=== PATIENT | male | born 1945 | race Caucasian/White ===

== ENCOUNTER 2021-11-15 13:51 | Inpatient (IN) | payer MEDICARE, BC ==
[~2021-11-15] VITALS: Ht 167.6 cm; Wt 76.7 kg
[2021-11-15 16:10] LABS: HEMATOCRIT 37.3 % (36.7-47.1); MEAN CORPUSCULAR HEMOGLOBIN 33.6 uug (23.8-33.4); MEAN CORPUSCULAR VOLUME 99.8 fL (73.0-96.2); PLATELET COUNT (AUTO) 196 K/uL (152-348)
[2021-11-15 16:17] LABS: CARBON DIOXIDE 32 mmol/L (21-32); CHLORIDE 106 mmol/L (98-107); CREATININE 1.1 mg/dL (0.6-1.3); GLUCOSE 97 mg/dL (74-106); POTASSIUM 4.2 mmol/L (3.5-5.1); UREA NITROGEN, BLOOD 28 mg/dL (7-18)
[2021-11-15 16:23] LABS: ALANINE AMINOTRANSFERASE 12 U/L (16-63); ALKALINE PHOSPHATASE 85 U/L (50-136); ASPARTATE AMINOTRANSFERASE 10 U/L (15-37); BILIRUBIN,TOTAL 0.5 mg/dL (0.2-1.0); TOTAL PROTEIN, SERUM 6.7 g/dL (6.4-8.2)
[2021-11-15 16:28] LABS: ETHANOL < 3 MG/DL (0-0)
[2021-11-15 16:36] LABS: ACETAMINOPHEN < 2.0 ug/mL (10-30)
[2021-11-15] MEDS ORDERED: QUET25TA PO (16:39)
[2021-11-15] MEDS ORDERED: ACET-2154 PO (16:39)
[2021-11-15] MEDS ORDERED: DONE10TA44 PO (16:39)
[2021-11-15] MEDS ORDERED: CARB1TAB31 PO (16:39)
[2021-11-15] MEDS ORDERED: MELA5TAB PO (16:39)
--- NOTE | 2021-11-15 16:40 | NUR ---
A [facility] PASSENGER RELATIONS REPRESENTATIVE evaluating the Pt for possible Psych admit/5150 hold.
--- NOTE | 2021-11-15 17:10 | NUR ---
COVID swab sent to lab.
--- NOTE | 2021-11-15 17:15 | NUR ---
Urine collected and sent to Lab.
[2021-11-15 17:23] LABS: *BILIRUBIN,URIN NEGATIVE (NEGATIVE); *BLOOD, URINE NEGATIVE (NEGATIVE); *CLARITY,URINE CLEAR (CLEAR); *COLOR,URINE YELLOW (YELLOW); *KETONES,URINE 1+ (NEGATIVE); *UROBILINOGEN,URINE 0.2 E.U./dl (NORMAL); LEUKOCYTE ESTERASE ,URINE NEGATIVE (NEGATIVE); NITRITE, URINE NEGATIVE (NEGATIVE); UGLUCOSE NEGATIVE (NEGATIVE)
[2021-11-15 17:31] LABS: *AMPHETAMINE, URINE NEGATIVE (NEGATIVE); *CANNABINOID, URINE NEGATIVE (NEGATIVE); *COCCAINE, URINE NEGATIVE (NEGATIVE); *OPIATE, URINE NEGATIVE (NEGATIVE); *PHENCYCLIDINE SCREEN,URINE NEGATIVE (NEGATIVE)
--- NOTE | 2021-11-15 18:15 | NUR ---
Pt is medically cleared by Dr oLzano.
--- NOTE | 2021-11-15 18:30 | NUR ---
Pt transfered to U via wheelchair.
[2021-11-15] MEDS ORDERED: MAG HYDROX/AL HYDROX/SIMETH 30 ML LIQUID UDC PO PRN (19:00)
[2021-11-15] MEDS ORDERED: LORAZEPAM 0.5 MG TABLET PO PRN (19:00)
[2021-11-15] MEDS: LORAZEPAM 1 MG TABLET PO PRN (19:46)
[2021-11-15 20:00] VITALS: BP 142/71
[2021-11-15] MEDS: ZOLPIDEM 5 MG TABLET PO PRN (20:43)
--- NOTE | 2021-11-15 22:23 | NUR ---
GPS ADMISSION NOTES: Received patient in the [facility], admitted to MHU under 5150 d/t GD, as per hold patient he has been yelling, hallucinating, easily agitated and non-compliant with care. Upon face to face evaluation, patient is confused, A&0x1. He is unable to answer questions or sign admissions papers d/t his confusion. Patient attempt to get out of chair but unsteady, assist him back to chair for safety, w/c he became combative. He is somewhat re-directable. Educated patient on the need for compliance in the unit. He is agreeable at this time. Prn ativan given and ambien given. Snacks and fluid provided w/ good appetite. Shower also provided. Pool Player spoke to to inform patients admittance to MHU, also provided me the information in regards to patient Covid 19- vaccine status. Advisement and patient rights handbook provided to patient at bedside. Fall precaution observed. Safety strategies kept in place.
[2021-11-16 06:37] LABS: BILIRUBIN,TOTAL 0.6 mg/dL (0.2-1.0); CREATININE 1.1 mg/dL (0.6-1.3); POTASSIUM 3.7 mmol/L (3.5-5.1); TOTAL PROTEIN, SERUM 6.4 g/dL (6.4-8.2)
[2021-11-16 07:30] VITALS: BP 146/85
[2021-11-16] MEDS: LORAZEPAM 1 MG TABLET PO PRN ×2 (08:50→17:59)
[2021-11-16] MEDS: QUETIAPINE FUMARATE 25 MG TABLET PO SCH ×2 (09:26→20:15)
--- NOTE | 2021-11-16 11:42 | NUR ---
KEL Initial Discharge Note: [facility] [place] [address] [facility] [address]. KEL will contact the facility regarding pt's return upon discharge. KEL will contact pt's , Valeria ([phone]) to discuss pt's discharge plan. KEL will continue to work with pt, family and MD to ensure a safe and proper discharge plan.
[2021-11-16] MEDS: LITHIUM CARBONATE 150 MG CAPSULE PO SCH ×2 (12:42→17:20)
[2021-11-16] MEDS ORDERED: POLY17PO4 PO (13:24)
[2021-11-16] MEDS ORDERED: CARB1TAB21 PO (13:24)
[2021-11-16] MEDS ORDERED: AMAN100T PO (13:24)
[2021-11-16] MEDS ORDERED: CARB1TAB39 PO (13:24)
--- NOTE | 2021-11-16 14:53 | NUR ---
Patient is confused, disoriented, forgetful, disorganized, agitated, restless, anxious, compliant with medications. Patient is given Ativan PO, semi effective. Patient has poor safety awareness, tries to walk without assistance. Patient requires more than minimal assistance with ADL. Reality orientation provided. Fall and safety precautions implemented.
[2021-11-16 15:27] VITALS: BP 133/80
--- NOTE | 2021-11-16 18:01 | NUR ---
Ativan 1 mg is given for agitation, anxiety, will be monitored for effectiveness.
[2021-11-16 19:47] VITALS: BP 133/82
[2021-11-17 07:30] VITALS: BP 142/81
[2021-11-17] MEDS: QUETIAPINE FUMARATE 25 MG TABLET PO SCH ×2 (09:11→20:37)
[2021-11-17] MEDS: LITHIUM CARBONATE 150 MG CAPSULE PO SCH ×3 (09:11→17:11)
--- NOTE | 2021-11-17 14:56 | NUR ---
Patient is quiet, withdrawn, confused, disoriented, restless, cooperative with nursing care and compliant with medications, follows directions. Patient requires more than minimal assistance with ADL. Reassurance given. Fall and safety precautions implemented.
[2021-11-17] MEDS: LORAZEPAM 1 MG TABLET PO PRN ×2 (15:05→20:37)
--- NOTE | 2021-11-17 15:07 | NUR ---
Patient is given Ativan 1 mg at 15:05 for restlessness, agitation, anxiety, will be monitored for effectiveness.
[2021-11-17 16:00] VITALS: BP 111/72
[2021-11-17] MEDS: CARBIDOPA/LEVODOPA 25-100MG TABLET PO SCH ×2 (17:17→20:45)
[2021-11-17 20:00] VITALS: BP 95/54
[2021-11-17] MEDS: CARBIDOPA/LEVODOPA CR 25-100MG TABLET.SA PO SCH (20:37)
[2021-11-17] MEDS: ZOLPIDEM 5 MG TABLET PO PRN (20:38)
--- NOTE | 2021-11-18 05:17 | NUR ---
GPS NOTES: Patient remains confused, A&ox1. He requires assistance to perform ADL's. Needs constant reality checks and redirections. He is med compliant. He does not make any meaningful conversation with the typewriter tester. He slept well during shift. frequent monitoring observed for safety.
[2021-11-18] MEDS: CARBIDOPA/LEVODOPA 25-100MG TABLET PO SCH ×6 (05:43→20:36)
[2021-11-18 07:30] VITALS: BP 127/71
[2021-11-18] MEDS: LITHIUM CARBONATE 150 MG CAPSULE PO SCH ×3 (08:35→17:42)
[2021-11-18] MEDS: AMANTADINE HCL 100 MG CAPSULE PO SCH (08:35)
[2021-11-18] MEDS: QUETIAPINE FUMARATE 25 MG TABLET PO SCH ×2 (08:36→20:36)
[2021-11-18] MEDS: MIRALAX 17 GM POWD.PACK PO SCH (08:36)
[2021-11-18] MEDS: LORAZEPAM 1 MG TABLET PO PRN ×2 (10:29→20:36)
--- NOTE | 2021-11-18 10:31 | NUR ---
Ativan 1 mg is given at 10:30 am for restlessness, agitation, anxiety, will be monitored for effectiveness.
[2021-11-18] MEDS ORDERED: LORAZEPAM 2 MG/1 ML VIAL IM ONE (11:45)
[2021-11-18] MEDS ORDERED: OLANZAPINE 10 MG VIAL IM ONE (11:45)
--- NOTE | 2021-11-18 12:27 | NUR ---
Patient became aggressive, tried to punch staff in the face, agitated, anxious, high potential for violence, striking out at others, punching the seals. Psychiatrist was called and ordered Zyprexa 5 mg IM, Ativan 1 mg IM. Security was called and 5 people were necessary to administered the medication, but no injuries for both parts. Reassurance given. Patient refuses vital signs. Fall and safety precautions implemented.
--- NOTE | 2021-11-18 15:40 | NUR ---
Firearms Report: Assistant Plant Manager completed and submitted a [employer] firearms report for 5150 grave disability certifications. A copy of report has been placed in patient chart.
[2021-11-18 15:47] VITALS: BP 141/89
--- NOTE | 2021-11-18 16:48 | NUR ---
Patient is restless, agitated, disoriented, disorganized. A/O X 1 to person. Requires more than minimal assistance with ADL. Reassurance given. Fall and safety precautions implemented.
[2021-11-18 20:00] VITALS: BP 138/76
[2021-11-18] MEDS: ZOLPIDEM 5 MG TABLET PO PRN (20:36)
[2021-11-18] MEDS: CARBIDOPA/LEVODOPA CR 25-100MG TABLET.SA PO SCH (20:52)
--- NOTE | 2021-11-18 21:50 | NUR ---
GPS: Received Patient lying in bed. confused, disoriented, forgetful, agitated, restless, anxious, compliant with medications. Patient has poor safety awareness, tries to walk without assistance. assisted with adl's. good yashira care provided for skin safety. Patient requires more than minimal assistance with ADL. Reality orientation provided. Fall and safety precautions implemented. bed alarm is on.continue monitoring for safety
[2021-11-19] MEDS: CARBIDOPA/LEVODOPA 25-100MG TABLET PO SCH ×6 (05:39→20:27)
--- NOTE | 2021-11-19 06:09 | NUR ---
GPS : Patient remain confused and forgetful through the shift. alert and oriented x1 to name only. incontinent provided adl's. ADL's. Needs constant reality checks and redirections. compliant with meds. compliant. slept 5.30 hrs through the night. frequent monitoring observed for safety. bed alarm on.
[2021-11-19 07:30] VITALS: BP 117/59
[2021-11-19] MEDS: LITHIUM CARBONATE 150 MG CAPSULE PO SCH ×3 (08:30→16:40)
[2021-11-19] MEDS: QUETIAPINE FUMARATE 25 MG TABLET PO SCH ×4 (08:30→20:28)
[2021-11-19] MEDS: MIRALAX 17 GM POWD.PACK PO SCH (08:31)
[2021-11-19] MEDS: AMANTADINE HCL 100 MG CAPSULE PO SCH (08:31)
[2021-11-19] MEDS: LORAZEPAM 1 MG TABLET PO PRN (09:01)
[2021-11-19 09:59] LABS: HEMATOCRIT 39.9 % (36.7-47.1); MEAN CORPUSCULAR HEMOGLOBIN 33.7 uug (23.8-33.4); MEAN CORPUSCULAR VOLUME 97.5 fL (73.0-96.2); PLATELET COUNT (AUTO) 208 K/uL (152-348)
[2021-11-19 10:36] LABS: CREATININE 1.1 mg/dL (0.6-1.3); PHOSPHOROUS 4.4 mg/dL (2.5-4.9); POTASSIUM 3.9 mmol/L (3.5-5.1)
--- NOTE | 2021-11-19 14:06 | NUR ---
Received patient alert and oriented x1 to himself only, get patient up to juan-chair . patient has episode of agitation and aggressive, Ativan 1 mg given as ordered.assisted with all ADLS,compliant with all po medication ,will continue close monitoring.
[2021-11-19 15:20] VITALS: BP 104/71
[2021-11-19 20:06] VITALS: BP 107/63
[2021-11-19] MEDS: CARBIDOPA/LEVODOPA CR 25-100MG TABLET.SA PO SCH (20:50)
--- NOTE | 2021-11-19 21:00 | NUR ---
GPS: Received Patient lying in bed. patient is confused, disoriented, forgetful, agitated, restless, anxious, compliant with medications. Patient has poor safety awareness, tries to get out of bed without assistance. patient assisted with adl's. Patient requires more than minimal assistance with ADL. Reality orientation provided. Fall and safety precautions implemented. bed alarm is on.continue monitoring for safety
[2021-11-20] MEDS: CARBIDOPA/LEVODOPA 25-100MG TABLET PO SCH ×6 (05:18→20:23)
--- NOTE | 2021-11-20 05:42 | NUR ---
GPS : Patient remain forgetful through the shift. alert and oriented x1 to name only. incontinent provided adl's. patient had large soft BM. Needs constant reality checks and redirections. compliant with meds. compliant. frequent monitoring observed for safety. bed alarm on.
--- NOTE | 2021-11-20 06:21 | NUR ---
GPS: slept 7.30 hrs through the night.
[2021-11-20 07:30] VITALS: BP 91/64
[2021-11-20] MEDS: LITHIUM CARBONATE 150 MG CAPSULE PO SCH ×3 (08:16→17:06)
[2021-11-20] MEDS: QUETIAPINE FUMARATE 25 MG TABLET PO SCH ×4 (08:16→20:24)
[2021-11-20] MEDS: MIRALAX 17 GM POWD.PACK PO SCH (08:17)
[2021-11-20] MEDS: AMANTADINE HCL 100 MG CAPSULE PO SCH (08:17)
[2021-11-20] MEDS: LORAZEPAM 1 MG TABLET PO PRN (09:28)
--- NOTE | 2021-11-20 09:30 | NUR ---
Patient is given Ativan 1 mg at 09:28 for anxiety, agitation, restlessness, very confused and disoriented, poor safety awareness, will be monitored for effectiveness.
[2021-11-20 16:00] VITALS: BP 106/67
[2021-11-20 20:00] VITALS: BP 122/68
[2021-11-20] MEDS: CARBIDOPA/LEVODOPA CR 25-100MG TABLET.SA PO SCH (20:25)
--- NOTE | 2021-11-20 22:30 | NUR ---
patient is resting in bed comfortably. no agitation noted at this time. prn for anxiety effective. continue plan of care.
--- NOTE | 2021-11-21 02:15 | NUR ---
patient is very agitated. ativan 1 mg po given for anxiety.
[2021-11-21] MEDS: LORAZEPAM 1 MG TABLET PO PRN ×3 (02:16→20:55)
--- NOTE | 2021-11-21 03:15 | NUR ---
patient is calm now. prn for anxiety effective.
[2021-11-21] MEDS: CARBIDOPA/LEVODOPA 25-100MG TABLET PO SCH ×6 (05:15→20:54)
--- NOTE | 2021-11-21 05:43 | NUR ---
GPS : Patient remain forgetful through the shift, alert and oriented x1 to name only. incontinent provided adl's. Needs constant reality checks and redirections. compliant with meds. frequent monitoring observed for safety. bed alarm on.continue plan of care.
[2021-11-21 06:44] VITALS: BP 116/70
[2021-11-21] MEDS: ACETAMINOPHEN 325 MG TABLET PO PRN ×2 (06:53→18:29)
--- NOTE | 2021-11-21 06:56 | NUR ---
temp 100.1 tylenol 650mg po given.encouraged po fluid. continue plan of care.
[2021-11-21 07:30] VITALS: BP 96/59
[2021-11-21 08:04] LABS: HEMATOCRIT 37.2 % (36.7-47.1); MEAN CORPUSCULAR HEMOGLOBIN 33.9 uug (23.8-33.4); MEAN CORPUSCULAR VOLUME 97.7 fL (73.0-96.2); PLATELET COUNT (AUTO) 207 K/uL (152-348)
[2021-11-21 08:18] LABS: BILIRUBIN,TOTAL 0.8 mg/dL (0.2-1.0); CREATININE 1.2 mg/dL (0.6-1.3); POTASSIUM 4.3 mmol/L (3.5-5.1); TOTAL PROTEIN, SERUM 6.8 g/dL (6.4-8.2)
[2021-11-21] MEDS: LITHIUM CARBONATE 150 MG CAPSULE PO SCH ×3 (08:23→16:53)
[2021-11-21] MEDS: QUETIAPINE FUMARATE 25 MG TABLET PO SCH ×4 (08:23→20:55)
[2021-11-21] MEDS: MIRALAX 17 GM POWD.PACK PO SCH (08:24)
[2021-11-21] MEDS: AMANTADINE HCL 100 MG CAPSULE PO SCH (08:32)
--- NOTE | 2021-11-21 15:26 | NUR ---
Received patient alert and oriented x1 to himself only, get patient up to juan-chair . patient has episode of agitation and aggressive, Ativan 1 mg given as ordered.assisted with all ADLS,compliant with all po medication ,patient is confused with poor insight and poor judgement will continue close monitoring.
[2021-11-21 16:08] VITALS: BP 122/73
--- NOTE | 2021-11-21 18:24 | NUR ---
noted patient had sql server bi developer abd.pain yelling and screaming ,Alison Sanchez COIL BUILDER notified with new order made.
[2021-11-21 19:58] VITALS: BP 102/61
[2021-11-21] MEDS: CARBIDOPA/LEVODOPA CR 25-100MG TABLET.SA PO SCH (20:54)
--- NOTE | 2021-11-21 22:35 | NUR ---
Patient is not able to comprehend when spoken to, but at times has moments of clarity. Was unable to leave to receive CT-Scan d/t shakiness and tremor r/t Parkinson's. Patient took PO medications without complications nor aspirations.
[2021-11-22] MEDS: LORAZEPAM 1 MG TABLET PO PRN (06:42)
[2021-11-22] MEDS: CARBIDOPA/LEVODOPA 25-100MG TABLET PO SCH ×6 (06:42→20:30)
[2021-11-22 08:30] VITALS: BP 113/65
[2021-11-22] MEDS: QUETIAPINE FUMARATE 25 MG TABLET PO SCH ×2 (08:37→20:31)
[2021-11-22] MEDS: LITHIUM CARBONATE 150 MG CAPSULE PO SCH (08:37)
[2021-11-22] MEDS: MIRALAX 17 GM POWD.PACK PO SCH (08:37)
[2021-11-22] MEDS: AMANTADINE HCL 100 MG CAPSULE PO SCH (08:38)
--- NOTE | 2021-11-22 09:30 | NUR ---
Patient had 5250 probable cause hearing today and it was upheld for grave disability
[2021-11-22] MEDS ORDERED: LITHIUM CARBONATE 150 MG CAPSULE PO SCH (10:00)
[2021-11-22] MEDS ORDERED: LITHIUM CARBONATE 150 MG CAPSULE PO ONE (10:15)
[2021-11-22 15:33] VITALS: BP 134/74
--- NOTE | 2021-11-22 16:19 | NUR ---
received patient up to Tracy-chair assisted with all ADLS, patient with poor impulse control , poor insight and judgement ,compliant with all po medication ,wll continue close monitoring.
--- NOTE | 2021-11-22 16:20 | NUR ---
KEL Family Contact: KEL spoke with pt's Valeria ([phone]) who stated that she is agreeable for pt to return to [facility] facility upon discharge. Mackenzie from [facility] has confirmed pt's return upon discharge on 11/25/21.
[2021-11-22] MEDS: LITHIUM CARBONATE 300 MG CAPSULE PO SCH (17:34)
[2021-11-22 20:02] VITALS: BP 122/72
[2021-11-22] MEDS: ZOLPIDEM 5 MG TABLET PO PRN (20:31)
[2021-11-22] MEDS: CARBIDOPA/LEVODOPA CR 25-100MG TABLET.SA PO SCH (20:31)
[2021-11-23] MEDS: CARBIDOPA/LEVODOPA 25-100MG TABLET PO SCH ×6 (05:58→20:11)
[2021-11-23 07:30] VITALS: BP 94/54
[2021-11-23] MEDS: QUETIAPINE FUMARATE 25 MG TABLET PO SCH ×2 (09:29→20:11)
[2021-11-23] MEDS: LITHIUM CARBONATE 300 MG CAPSULE PO SCH ×2 (09:29→16:18)
[2021-11-23] MEDS: AMANTADINE HCL 100 MG CAPSULE PO SCH (09:30)
[2021-11-23] MEDS: MIRALAX 17 GM POWD.PACK PO SCH (09:30)
[2021-11-23] MEDS: LORAZEPAM 1 MG TABLET PO PRN (11:00)
--- NOTE | 2021-11-23 11:05 | NUR ---
Patient is given Ativan 1 mg at 11:00 for anxiety, restlessness, and agitation, will be monitored for effectiveness.
--- NOTE | 2021-11-23 15:50 | NUR ---
Patient is confused, forgetful, combative at times, disoriented, compliant with medications. A/O X 2 to person, place. Total care. Reassurance given. Fall and safety precautions implemented.
[2021-11-23 16:44] VITALS: BP 130/74
[2021-11-23 19:50] VITALS: BP 126/62
[2021-11-23] MEDS: ZOLPIDEM 5 MG TABLET PO PRN (20:11)
[2021-11-23] MEDS: CARBIDOPA/LEVODOPA CR 25-100MG TABLET.SA PO SCH (20:11)
--- NOTE | 2021-11-24 03:49 | NUR ---
GPS NOTES: Patient in bed when received, he is confused and can't hold meaningful conversations. He is med compliant. Needs maximum assistance to perform ADL's. Has episode of being aggressive by grabbing writers hand when providing nursing care. Provided fluids and snacks. Patient sleeping intermittently with no distress noted. Frequent monitoring in placed.
[2021-11-24] MEDS: CARBIDOPA/LEVODOPA 25-100MG TABLET PO SCH ×6 (05:50→20:46)
[2021-11-24 07:30] VITALS: BP 118/74
[2021-11-24 08:18] LABS: HEMATOCRIT 37.3 % (36.7-47.1); MEAN CORPUSCULAR HEMOGLOBIN 34.2 uug (23.8-33.4); MEAN CORPUSCULAR VOLUME 98.7 fL (73.0-96.2); PLATELET COUNT (AUTO) 229 K/uL (152-348)
[2021-11-24 08:21] LABS: CREATININE 1.2 mg/dL (0.6-1.3); MAGNESIUM 1.8 mg/dL (1.8-2.4); PHOSPHOROUS 4.1 mg/dL (2.5-4.9); POTASSIUM 4.3 mmol/L (3.5-5.1)
[2021-11-24] MEDS: LITHIUM CARBONATE 300 MG CAPSULE PO SCH ×2 (08:32→16:11)
[2021-11-24] MEDS: QUETIAPINE FUMARATE 25 MG TABLET PO SCH ×2 (08:32→20:46)
[2021-11-24] MEDS: MIRALAX 17 GM POWD.PACK PO SCH (08:33)
[2021-11-24] MEDS: AMANTADINE HCL 100 MG CAPSULE PO SCH (08:55)
[2021-11-24 16:00] VITALS: BP 111/74
--- NOTE | 2021-11-24 17:48 | NUR ---
Patient had a successful BM during shift. Adam and edison. Patient still showing with hand tremors throughout shift. Full assist with ADL's.
[2021-11-24] MEDS: CARBIDOPA/LEVODOPA CR 25-100MG TABLET.SA PO SCH (20:46)
[2021-11-24 20:56] VITALS: BP 112/73
--- NOTE | 2021-11-24 21:00 | NUR ---
RECEIVED PATIENT IN HIS ROOM IN BED. HE WAS NOTED AWAKE A/O X 1 TO 2. HE IS NOTED RESTLESS BUT HE IS EASILY REDIRECTABLE. NO AGGRESSIVE OR COMBATIVE BX NOTED AT THIS TIME. HE IS ABLE TO COMPLY WITH HIS MEDICATION REGIMENT DIET AND CARE. HE IS REASSURED FOR HIS SAFETY. HIS V/S ARE STABLE, HE IS IN NO DISTRESS. PO FLUIDS AND SNACKS WERE GIVEN. WILL CONTINUE TO MONITOR.
[2021-11-24] MEDS: LORAZEPAM 1 MG TABLET PO PRN (21:18)
[2021-11-25] MEDS: CARBIDOPA/LEVODOPA 25-100MG TABLET PO SCH ×6 (06:28→20:46)
[2021-11-25 07:30] VITALS: BP 101/71
[2021-11-25] MEDS: AMANTADINE HCL 100 MG CAPSULE PO SCH (08:24)
[2021-11-25] MEDS: QUETIAPINE FUMARATE 25 MG TABLET PO SCH ×2 (08:25→20:47)
[2021-11-25] MEDS: LITHIUM CARBONATE 300 MG CAPSULE PO SCH ×2 (08:25→17:13)
[2021-11-25] MEDS: MIRALAX 17 GM POWD.PACK PO SCH (08:26)
[2021-11-25] MEDS: LORAZEPAM 1 MG TABLET PO PRN (10:17)
--- NOTE | 2021-11-25 10:20 | NUR ---
Patient is given Ativan 1 mg at 10:17 for anxiety, restlessness, agitation, will be monitored for effectiveness.
--- NOTE | 2021-11-25 15:43 | NUR ---
Patient is confused, disoriented, poor safety awareness, anxious and restless at times, forgetful, cooperative most of the time. A/O X 2 to person. Patient states "Can you please help me? I'm in halfway. I need to get out of here". Requires more than minimal assistance with ADL. Reassurance given. Fall and safety precautions implemented.
[2021-11-25 16:13] VITALS: BP 115/69
[2021-11-25] MEDS ORDERED: REMEDY ESSENTIAL ZINC PASTE 113 GM TOP PRN ×2 (18:30)
[2021-11-25 20:23] VITALS: BP 116/66
--- NOTE | 2021-11-25 20:30 | NUR ---
RECEIVED PATIENT IN HIS ROOM IN BED. HE WAS NOTED AWAKE A/O X 1 TO 2. HE IS NOTED CALM AND COOPERATIVE UPON APPROACHED. HIS MOOD IS LOW, AFFECT IS BLUNTED. HE IS A POOR HISTORIAN. PATIENT NEEDS ASSISTANCE WITH AMBULATION AND ADLs. NO AGGRESSIVE OR COMBATIVE BX NOTED AT THIS TIME. HE IS ABLE TO COMPLY WITH HIS MEDICATION REGIMENT DIET AND CARE. HE IS REASSURED FOR HIS SAFETY. SAFETY AND FALL PRECAUTIONS ARE IN PLACE. HIS V/S ARE STABLE, HE IS IN NO DISTRESS. PO FLUIDS AND SNACKS WERE GIVEN. WILL CONTINUE TO MONITOR.
[2021-11-25] MEDS: CARBIDOPA/LEVODOPA CR 25-100MG TABLET.SA PO SCH (20:46)
[2021-11-26] MEDS: ZOLPIDEM 5 MG TABLET PO PRN (00:10)
--- NOTE | 2021-11-26 00:10 | NUR ---
PATIENT WAS NOTED YELLING. HE IS UNABLE TO FALL ASLEEP. ALL HIS NEEDS WERE MET. AMBIEN 5MG PO PRN WAS GIVEN. WILL CONTINUE TO MONITOR.
[2021-11-26] MEDS: LORAZEPAM 1 MG TABLET PO PRN ×2 (01:05→10:59)
[2021-11-26] MEDS: ACETAMINOPHEN 325 MG TABLET PO PRN (01:05)
[2021-11-26] MEDS: CARBIDOPA/LEVODOPA 25-100MG TABLET PO SCH ×6 (05:48→20:45)
[2021-11-26 07:30] VITALS: BP 104/66
[2021-11-26] MEDS: AMANTADINE HCL 100 MG CAPSULE PO SCH (08:19)
[2021-11-26] MEDS: LITHIUM CARBONATE 300 MG CAPSULE PO SCH ×2 (08:19→17:04)
[2021-11-26] MEDS: QUETIAPINE FUMARATE 25 MG TABLET PO SCH ×2 (08:19→20:44)
[2021-11-26] MEDS: MIRALAX 17 GM POWD.PACK PO SCH (08:19)
--- NOTE | 2021-11-26 10:00 | NUR ---
KEL Family Contact: SW spoke with pt's Valeria ([phone]) and informed her of the anticipated discharge date on Monday to return to [facility] [address] [phone].
--- NOTE | 2021-11-26 14:17 | NUR ---
Patient is cooperative with care and compliant with medications, confused, disorganized, irritable and angry at times. A/O X 1 -2 to person, place. Ativan 1 mg was given at 10:59 for anxiety, effective. Total care. Reassurance given. Fall and safety precautions implemented.
[2021-11-26 16:44] VITALS: BP 120/79
[2021-11-26 19:46] VITALS: BP 118/74
--- NOTE | 2021-11-26 20:30 | NUR ---
received patient in his room in bed. he is noted awake A/O x 1 to 2. he is noted calm and pleasant upon approached. Patient is able to answer simple questions; however, his speech is disorganized. he needs help with ADLs. No aggressive or combative bx noted at this time. pt is able to accept care. he is compliant with his medication regiment diet and care. His V/S are stable, he is in no distress, patient was given PO fluids and snacks. Safety and fall precautions are in place. he is reassured for his safety. will continue to monitor,
[2021-11-26] MEDS: CARBIDOPA/LEVODOPA CR 25-100MG TABLET.SA PO SCH (20:44)
[2021-11-27] MEDS: ZOLPIDEM 5 MG TABLET PO PRN (00:54)
[2021-11-27] MEDS: LORAZEPAM 1 MG TABLET PO PRN ×2 (03:56→15:01)
--- NOTE | 2021-11-27 04:00 | NUR ---
Patient noted yelling. he was observed restless. All his needs were met. Ativan 1mg PO prn was given. will continue to monitor.
[2021-11-27] MEDS: CARBIDOPA/LEVODOPA 25-100MG TABLET PO SCH ×6 (06:09→20:15)
--- NOTE | 2021-11-27 06:51 | NUR ---
Patient slept for approx 6.15 hrs through the night. No aggressive/combative Bx was noted during the shift. he is compliant with medication regiment diet and plan of care. will continue to monitor.
[2021-11-27 07:45] VITALS: BP 120/72
[2021-11-27] MEDS: QUETIAPINE FUMARATE 25 MG TABLET PO SCH ×2 (08:56→20:14)
[2021-11-27] MEDS: LITHIUM CARBONATE 300 MG CAPSULE PO SCH ×2 (08:56→17:13)
[2021-11-27] MEDS: MIRALAX 17 GM POWD.PACK PO SCH (08:57)
[2021-11-27] MEDS: AMANTADINE HCL 100 MG CAPSULE PO SCH (08:57)
--- NOTE | 2021-11-27 14:07 | NUR ---
Patient is calm, cooperative, confused, withdrawn, forgetful, disorganized, agitated at times. Pt. is compliant with medications. Emotional support provided. Fall and safety precautions implemented.
--- NOTE | 2021-11-27 15:06 | NUR ---
Ativan 1 mg is given at 15:01 for anxiety, restlessness, will be monitored for effectiveness.
[2021-11-27 16:23] VITALS: BP 117/78
[2021-11-27 19:54] VITALS: BP 106/65
[2021-11-27] MEDS: CARBIDOPA/LEVODOPA CR 25-100MG TABLET.SA PO SCH (20:15)
[2021-11-28] MEDS: LORAZEPAM 1 MG TABLET PO PRN ×2 (01:11→08:31)
--- NOTE | 2021-11-28 04:17 | NUR ---
GPS NOTES: Patient remains in bed, needs total assistance to perform ADL's. Remains confused and forgetful, not holding any meaningful conversations. Fluids and snacks provided. Prn Ativan given for increasing anxiety. Effective. He is med compliant. Safety strategies in place.
[2021-11-28] MEDS: CARBIDOPA/LEVODOPA 25-100MG TABLET PO SCH ×6 (05:47→21:02)
[2021-11-28 07:38] VITALS: BP 98/58
[2021-11-28] MEDS: LITHIUM CARBONATE 300 MG CAPSULE PO SCH ×2 (08:28→16:07)
[2021-11-28] MEDS: MIRALAX 17 GM POWD.PACK PO SCH (08:28)
[2021-11-28] MEDS: QUETIAPINE FUMARATE 25 MG TABLET PO SCH ×2 (08:29→21:02)
[2021-11-28] MEDS: AMANTADINE HCL 100 MG CAPSULE PO SCH (08:29)
--- NOTE | 2021-11-28 15:48 | NUR ---
received patient up to Tracy-chair assisted with all ADLS, patient with poor impulse control , poor insight and judgement ,compliant with all po medication ,Covid test done for placement in am , will continue close monitoring.
[2021-11-28 16:06] VITALS: BP 104/64
[2021-11-28 19:39] VITALS: BP 101/66
--- NOTE | 2021-11-28 20:30 | NUR ---
Received patient in his room in bed. he is noted sleeping but easily arousable. he is A/O x 1 to 2. he is noted calm and pleasant upon approached. he is a poor historian. he needs help with ADLs. No aggressive or combative bx noted at this time. pt is able to accept care. he is compliant with his medication regiment diet and care. His V/S are stable, he is in no distress, patient was given PO fluids and snacks. Safety and fall precautions are in place. he is reassured for his safety. will continue to monitor,
[2021-11-28] MEDS: CARBIDOPA/LEVODOPA CR 25-100MG TABLET.SA PO SCH (21:02)
[2021-11-29] MEDS: CARBIDOPA/LEVODOPA 25-100MG TABLET PO SCH ×4 (06:04→15:00)
[2021-11-29 07:25] VITALS: BP 104/67
[2021-11-29] MEDS: LITHIUM CARBONATE 300 MG CAPSULE PO SCH (08:22)
[2021-11-29] MEDS: AMANTADINE HCL 100 MG CAPSULE PO SCH (08:22)
[2021-11-29] MEDS: QUETIAPINE FUMARATE 25 MG TABLET PO SCH (08:22)
[2021-11-29] MEDS: MIRALAX 17 GM POWD.PACK PO SCH (08:23)
--- NOTE | 2021-11-29 09:14 | NUR ---
KEL Discharge Note: Pt will be discharged to [facility] [place] [id number]) [phone] via ambulance transportation at 11AM. KEL spoke with Mackenzie at the facility who stated they are ready to accept the pt today. Pt is aware and agreeable with discharge plan. Pts , Valeria ([phone]) is aware and agreeable with the discharge plan. Pt is alert and oriented x1, is unable to plan for self-care at this time. However, pt is willing to accept care at SNF. Pt denies any suicidal or homicidal ideation. Pt will follow-up at the facility with Psychiatrist, Dr. Morrison and Wool Scourer, Dr. Russo. Pt presents with calm mood and congruent affect. PHARMACY: [facility] [address] [facility] .
[2021-11-29] MEDS: LORAZEPAM 1 MG TABLET PO PRN (10:49)
--- NOTE | 2021-11-29 11:15 | NUR ---
SW Family Contact: This SW contacted pts , Valeria ([phone]) to inform her one last time on pt's discharge to [facility]. Gi informed this engineering writer to not discharge the pt there as she did not approve of their care from his previous admission there. Gi stated she did not confirm to this despite previous verbal agreements regarding discharge update from this SW to [facility]. Valeria stated she wants the pt to discharge to [facility]. This SW stated she will send the referral and update her once this engineering writer has any updates from their facility.
--- NOTE | 2021-11-29 11:35 | NUR ---
SW SNF Referral: SW faxed patient's referral packet including: History and Physical, Consultation, Progress Notes, Medication List and Labs to the following facilities for review and possible long-term placement: [facility] located at [address] [place] [address] ([phone]) F: [phone]). This SW spoke with Analilia in admissions who stated they are reviewing the file. Analilia stated they can accept the pt today though they do require updated clinicials for final confirmation.
--- NOTE | 2021-11-29 13:41 | NUR ---
KEL Discharge Note Update: Pt will be discharged to [facility] located at [address] [place] [address] ([phone]) via ambulance transportation at 3PM. KEL spoke with Analilia at the facility who stated they are ready to accept the pt today. Pt is aware and agreeable with discharge plan. Pts , Valeria ([phone]) is aware and agreeable with the discharge plan. Pt is alert and oriented x1, is unable to plan for self-care at this time. However, pt is willing to accept care at SNF. Pt denies any suicidal or homicidal ideation. Pt will follow-up at the facility with Psychiatrist, Dr. White and Oil Pipeline Operator, Dr. Romero. Pt presents with calm mood and congruent affect. PHARMACY: [facility] ([phone]).
[2021-11-29 16:10] VITALS: BP 118/79
--- NOTE | 2021-11-29 16:26 | NUR ---
Discharged to [facility] via ambulance at 4:30 pm. Pt is aware and agreeable with discharge plan. report given to Meredith SWEENEY and all personal belonging returned to patient , Pt will follow-up at the facility with Psychiatrist, Dr. White and Hotel Casino Floorperson, Dr. Romero. patient vital sign stable denies any pain or discomfort .
== END 2021-11-29 16:30 | DRG 885 ==
LOC: ER 13:51 → GPS 18:05
PROVIDERS: ADMIT Psychiatry & Neurology Psychiatry; ATTEND Internal Medicine
DX: F29 Unspecified psychosis not due to a substance or known physiological condition (principal); F02.82 Dementia in other diseases classified elsewhere, unspecified severity, with psychotic disturbance; D68.59 Other primary thrombophilia; G20 Parkinson's disease; E66.9 Obesity, unspecified; Z74.09 Other reduced mobility; Z68.27 Body mass index [BMI] 27.0-27.9, adult; R26.89 Other abnormalities of gait and mobility; D75.89 Other specified diseases of blood and blood-forming organs; Z87.820 Personal history of traumatic brain injury; Z20.822 Contact with and (suspected) exposure to COVID-19
CPT/HCPCS: 36415; 70030-TC; 83735; 84100; 84443; 84481; 85025; 93005; A4663; G0480; J2060; J2358